=== PATIENT | female | born 2000 | race Caucasian/White ===

== ENCOUNTER 2024-01-24 05:13 | Inpatient (IN) | payer OTHER ==
[2024-01-24] MEDS ORDERED: Sodium Chloride 0.9% 2.5 ML Syringe FLUSH PRN (05:40)
[2024-01-24] MEDS ORDERED: Water For Irrigation,Sterile 1,000 ML Container IRR PRN (05:40)
[2024-01-24] MEDS ORDERED: Carboprost Tromethamine 250 MCG/1 mL Vial IM PRN (05:40)
[2024-01-24] MEDS ORDERED: Sodium Chloride 0.9% 10 ML Syringe FLUSH PRN (05:40)
[2024-01-24] MEDS ORDERED: Sodium Chloride 0.9% 20 ML SDV IV PRN (05:40)
[2024-01-24] MEDS ORDERED: Methylergonovine 0.2 MG/1 ML Amp IM PRN (05:40)
[2024-01-24] MEDS ORDERED: Tranexamic Acid IN NACL,ISO-OS 1,000 MG in Premix Bag 1 BAG IV PRN (05:40)
[2024-01-24] MEDS ORDERED: Misoprostol 200 MCG Tab PO PRN (05:40)
[2024-01-24] MEDS ORDERED: Lidocaine 1% 50 ML MDV INJECT PRN (05:40)
[2024-01-24] MEDS: Lactated Ringers 1,000 ML IV SCH (05:58)
[2024-01-24 06:11] LABS: HEMATOCRIT 30.2 % (37.0-47.0); HEMOGLOBIN 9.4 g/dL (12.0-16.0); MEAN CORPUSCULAR HEMOGLOBIN 22.2 pg (28.0-32.0); MEAN CORPUSCULAR HGB CONC 31.1 g/dL (32.0-36.0); MEAN CORPUSCULAR VOLUME 71.2 fL (83.0-99.0); MEAN PLATELET VOLUME 10.8 fL (9.4-12.3); NRBC ABSOLUTE 0.05 K/uL (0.00-0.02); NRBC PERCENT 0.2 /100WBC (0.0-0.2); PLATELET COUNT,PLT 283 K/uL (150-400); RED BLOOD CELL COUNT 4.24 M/uL (4.10-5.30); WHITE BLOOD CELL COUNT,WBC 20.01 K/uL (3.9-11.3)
[2024-01-24] MEDS ORDERED: ePHEDrine 50 MG/ML SDV IVPUSH PRN ×2 (06:39)
[2024-01-24] MEDS: Ropivacaine HCl/PF 400 MG in Premix Bag 1 BAG EPIDUR SCH (07:15)
[2024-01-24] MEDS ORDERED: Bupivacaine 0.25% 10 ML SDV ONE (07:27)
[2024-01-24] MEDS ORDERED: dexmedeTOMIDine HCl 200 MCG/2 ML SDV ONE (07:27)
[2024-01-24] MEDS: Phenylephrine HCl 0.5 MG/5 ML AMP IVPUSH PRN (08:19)
[2024-01-24] MEDS ORDERED: Oxytocin/0.9 % Sodium Chloride 30 UNIT/500 ML BAG IV SCH (17:45)
[2024-01-24] MEDS: Ondansetron 4 MG/2 ML SDV IVPUSH ONE (17:52)
[2024-01-24] MEDS: Oxytocin/0.9 % Sodium Chloride 30 UNIT/500 ML BAG IV SCH (17:55)
[2024-01-24] MEDS ORDERED: Oxytocin 10 Units/1 ML SDV ONE (23:33)
[2024-01-24] MEDS ORDERED: Ondansetron 4 MG/2 ML SDV ONE (23:33)
[2024-01-24] MEDS ORDERED: Bupivacaine 0.5% 10 ML SDV ONE (23:33)
[2024-01-24] MEDS ORDERED: ceFAZolin 1 GM Vial ONE (23:33)
[2024-01-24] MEDS ORDERED: fentaNYL 100 MCG/2 ML SDV ONE (23:35)
[2024-01-24] MEDS ORDERED: Azithromycin 500 MG in Sodium Chloride 0.9% 250 ML IV ONE (23:41)
[2024-01-24] MEDS ORDERED: ceFAZolin 2 GM in Sodium Chloride 0.9% 50 ML IV ONE (23:42)
[2024-01-25] MEDS ORDERED: Azithromycin 500 MG Vial ONE (00:01)
[2024-01-25] MEDS ORDERED: dexmedeTOMIDine HCl 200 MCG/2 ML SDV ONE (00:03)
[2024-01-25] MEDS ORDERED: Water For Injection, Sterile 20 ML ONE (00:03)
[2024-01-25] MEDS ORDERED: Morphine PF 10 MG/10 ML SDV ONE (00:08)
[2024-01-25] MEDS ORDERED: Ketamine HCL/NACL, ISO-OSM 50 MG/5 ML Syringe ONE (00:09)
[2024-01-25] MEDS ORDERED: droPERidol 5 MG/2 ML SDV IVPUSH PRN (01:05)
[2024-01-25] MEDS ORDERED: fentaNYL 50 MCG/ML SDV IVPUSH PRN (01:05)
[2024-01-25] MEDS ORDERED: Naloxone 0.4 MG/ML SDV IVPUSH PRN (01:05)
[2024-01-25] MEDS ORDERED: diphenhydrAMINE 50 MG/ML SDV IVPUSH PRN ×2 (01:05→01:17)
[2024-01-25] MEDS ORDERED: Ondansetron 4 MG/2 ML SDV IVPUSH PRN ×3 (01:05→01:17)
[2024-01-25] MEDS ORDERED: ePHEDrine 50 MG/ML SDV IVPUSH PRN (01:05)
[2024-01-25] MEDS ORDERED: Acetaminophen/oxyCODONE 325-5 MG Tab PO PRN (01:05)
[2024-01-25] MEDS ORDERED: HYDROmorphone 1 MG/ML Syringe IVPUSH PRN (01:05)
[2024-01-25] MEDS ORDERED: Albuterol 0.083% 2.5 MG/3 ML Neb Soln NEB PRN (01:05)
[2024-01-25] MEDS ORDERED: Metoclopramide 10 MG/2 ML SDV IVPUSH PRN (01:05)
[2024-01-25] MEDS ORDERED: Morphine 2 MG/ML SYRINGE IVPUSH PRN (01:05)
[2024-01-25] MEDS ORDERED: Bisacodyl 10 MG Supp RECTAL PRN (01:17)
[2024-01-25] MEDS ORDERED: Misoprostol 200 MCG Tab RECTAL PRN (01:17)
[2024-01-25] MEDS ORDERED: Methylergonovine 0.2 MG/1 ML Amp IM PRN (01:17)
[2024-01-25] MEDS ORDERED: Lanolin 100% Cream 7 GM Tube TOP PRN (01:17)
[2024-01-25] MEDS ORDERED: Oxytocin 10 Units/1 ML SDV IM PRN (01:17)
[2024-01-25] MEDS ORDERED: Oxytocin/0.9 % Sodium Chloride 30 UNIT/500 ML BAG IV SCH (01:30)
[2024-01-25] MEDS: Ketorolac 30 MG/ML SDV IVPUSH SCH (01:41)
[2024-01-25 01:53] LABS: PH,UMBILICAL ARTERIAL 7.116 (7.18-7.38); PH,UMBILICAL VENOUS 7.168 (7.25-7.45)
[2024-01-25] MEDS: fentaNYL 100 MCG/2 ML SDV IVPUSH PRN (02:00)
[2024-01-25] MEDS: Lactated Ringers 1,000 ML IV SCH (02:07)
[2024-01-25] MEDS: Acetaminophen 1,000 MG in Premix Bag 1 BAG IV PRN (03:03)
[2024-01-25] MEDS: Docusate Sodium 100 MG Cap PO SCH (08:47)
[2024-01-26] MEDS: Acetaminophen/oxyCODONE 325-5 MG Tab PO PRN (05:26)
[2024-01-26 05:59] LABS: HEMATOCRIT 26.9 % (37.0-47.0); HEMOGLOBIN 8.1 g/dL (12.0-16.0)
[2024-01-26] MEDS: Sodium Ferric Gluconate Cmplex 125 MG in Sodium Chloride 0.9% 100 ML IV ONE (08:21)
[2024-01-26] MEDS: Ibuprofen 800 MG Tab PO PRN (08:43)
[2024-01-27] MEDS: Acetaminophen/oxyCODONE 325-5 MG Tab PO PRN (10:33)
== END 2024-01-27 12:25 | disposition home or self-care (01) | DRG 788 ==
LOC: MW.OBCHECK 05:13 → MW.OB 05:14 → MW.OBCHECK 05:40 → OBSVTOIN 01-25 00:13 → MW.OB 01-25 03:00
PROVIDERS: ADMIT Obstetrics & Gynecology; ATTEND Obstetrics & Gynecology
PROC: 3E0R3BZ Introduction of Anesthetic Agent into Spinal Canal, Percutaneous Approach (ICD-10-PCS; 2024-01-25)
PROC: 00HU33Z Insertion of Infusion Device into Spinal Canal, Percutaneous Approach (ICD-10-PCS; 2024-01-25)
PROC: 10907ZC Drainage of Amniotic Fluid, Therapeutic from Products of Conception, Via Natural or Artificial Opening (ICD-10-PCS; 2024-01-25)
PROC: 10D00Z1 Extraction of Products of Conception, Low, Open Approach (ICD-10-PCS; principal; 2024-01-25 00:06)
DX: O48.0 Post-term pregnancy (principal); O62.1 Secondary uterine inertia; O99.334 Smoking (tobacco) complicating childbirth; O99.02 Anemia complicating childbirth; D50.9 Iron deficiency anemia, unspecified; Z37.0 Single live birth; Z3A.40 40 weeks gestation of pregnancy
CPT/HCPCS: 01967; 36415; 82803; 85014; 85018; 85027; 86592; 86850; 86900; 86901; A9270-GY; J0131; J0456; J0665; J0690; J1885; J2274; J2371; J2405; J2590; J2795; J2916; J3010; J3490; J7120